=== PATIENT | female | born 1935 | race Caucasian/White ===

== ENCOUNTER 2016-08-03 10:02 | Outpatient (CLI) | payer MEDICARE, BC ==
[~2016-08-03] VITALS: Ht 160 cm; Wt 80.9 kg
[~2016-08-03 10:02] MED LIST: ALENDRONATE SOD35 M1 PO; ASPIRIN E.C. 8181 MG PO; CARDI-OMEGA1000 MG PO; CARDIZEM CD 24240 MG PO; COZAAR 25MG25 MG/TAB PO; DILTIAZEM240 M2 PO; DIOVAN HCT PO; FISH OIL 1000MG1 CAP PO; FOLIC ACID 40400 MCG PO; GLUCOSAMINE & C1 TER PO; IRON324 M1 PO; LIPITOR20 MG PO; METOCLOPRAMIDE10 M1 PO; PROTONIX40 MG PO; PROTONIX40 MG/Pack PO; RT ADVAIR 128 DISKUS IH; VITAMIN C PO; VITAMIN D32000 I1 PO
[2016-08-03] MEDS ORDERED: RECLAST5 MG/100 M IV (10:28)
[2016-08-03] MEDS ORDERED: NORCO 325 MG-51 TAB PO (10:28)
[2016-08-03 10:29] VITALS: BP 118/46; PULSE 50; TEMP 98
== END 2016-08-03 15:51 | disposition home or self-care (01) ==
LOC: EUO 10:02
DX: M81.0 Age-related osteoporosis without current pathological fracture (principal)
CPT/HCPCS: J3489

== ENCOUNTER → 2016-08-05 | Outpatient (CLI) | payer MEDICARE, BC ==
[~2016-08-05] MED LIST changes: +NORCO 325 MG-51 TAB PO; +RECLAST5 MG/100 M IV
== END ==
LOC: MHCPAIN 07:51
DX: G89.29 Other chronic pain (principal); M47.817 Spondylosis without myelopathy or radiculopathy, lumbosacral region; M54.16 Radiculopathy, lumbar region; M53.3 Sacrococcygeal disorders, not elsewhere classified; M25.561 Pain in right knee
CPT/HCPCS: G0463

== ENCOUNTER 2016-09-28 11:15 | Outpatient (RCR) | payer MEDICARE, BC | END 2016-11-09 | LOC: WSPT | DX: M51.16 Intervertebral disc disorders with radiculopathy, lumbar region (principal); M17.11 Unilateral primary osteoarthritis, right knee; Z96.652 Presence of left artificial knee joint | CPT/HCPCS: G8978-GP; G8979-GP ==

== ENCOUNTER → 2016-10-05 | Outpatient (CLI) | payer MEDICARE, BC | LOC: MHCPAIN 08:50 | DX: G89.29 Other chronic pain (principal); M47.817 Spondylosis without myelopathy or radiculopathy, lumbosacral region; M53.3 Sacrococcygeal disorders, not elsewhere classified | CPT/HCPCS: G0463 ==

== ENCOUNTER → 2016-10-13 | Outpatient (CLI) | payer MEDICARE, BC | LOC: MHCPAIN 09:30 | DX: M47.817 Spondylosis without myelopathy or radiculopathy, lumbosacral region (principal) ==

== ENCOUNTER → 2016-10-19 | Outpatient (CLI) | payer MEDICARE, BC | LOC: MHCPAIN 09:09 | DX: G89.29 Other chronic pain (principal); M47.817 Spondylosis without myelopathy or radiculopathy, lumbosacral region; M53.3 Sacrococcygeal disorders, not elsewhere classified; Z87.891 Personal history of nicotine dependence; Z79.82 Long term (current) use of aspirin | CPT/HCPCS: G0463 ==

== ENCOUNTER → 2016-10-27 | Outpatient (CLI) | payer MEDICARE, BC ==
[~2016-10-27] MED LIST changes: +MASON NATURAL2000 IU PO; -VITAMIN D32000 I1 PO
== END ==
LOC: MHCPAIN 09:36
DX: M47.817 Spondylosis without myelopathy or radiculopathy, lumbosacral region (principal)

== ENCOUNTER → 2016-11-02 | Outpatient (CLI) | payer MEDICARE, BC ==
[~2016-11-02] MED LIST changes: -MASON NATURAL2000 IU PO; +VITAMIN D32000 I1 PO
== END ==
LOC: MHCPAIN 14:10
DX: G89.29 Other chronic pain (principal); M47.27 Other spondylosis with radiculopathy, lumbosacral region; M53.3 Sacrococcygeal disorders, not elsewhere classified; Z87.891 Personal history of nicotine dependence; Z79.82 Long term (current) use of aspirin
CPT/HCPCS: G0463

== ENCOUNTER → 2016-11-24 | Outpatient (CLI) | payer MEDICARE, BC | LOC: MHCPAIN 08:19 | DX: M47.27 Other spondylosis with radiculopathy, lumbosacral region (principal); M51.16 Intervertebral disc disorders with radiculopathy, lumbar region | CPT/HCPCS: J1100; Q9967 ==

== ENCOUNTER → 2016-12-07 | Outpatient (CLI) | payer MEDICARE, BC | LOC: MHCPAIN 08:53 | DX: G89.29 Other chronic pain (principal); M47.27 Other spondylosis with radiculopathy, lumbosacral region; M53.3 Sacrococcygeal disorders, not elsewhere classified; Z87.891 Personal history of nicotine dependence | CPT/HCPCS: G0463 ==

== ENCOUNTER → 2017-03-06 | Outpatient (CLI) | payer MEDICARE, BC | LOC: MHCPAIN 09:50 | DX: G89.29 Other chronic pain (principal); M47.27 Other spondylosis with radiculopathy, lumbosacral region; M53.3 Sacrococcygeal disorders, not elsewhere classified; M48.061 Spinal stenosis, lumbar region without neurogenic claudication; Z87.891 Personal history of nicotine dependence | CPT/HCPCS: G0463 ==

== ENCOUNTER 2017-07-11 14:38 | Outpatient (CLI) | payer MEDICARE, BC ==
[~2017-07-11] VITALS: Ht 160 cm; Wt 81.0 kg
[~2017-07-11 14:38] MED LIST changes: +MASON NATURAL2000 IU PO; -VITAMIN D32000 I1 PO
[2017-07-11 15:12] VITALS: BP 110/42; PULSE 50; TEMP 97.9
== END 2017-07-11 16:17 | disposition home or self-care (01) ==
LOC: EUO 14:38
DX: M81.0 Age-related osteoporosis without current pathological fracture (principal)
CPT/HCPCS: J3489

== ENCOUNTER → 2017-12-26 | Outpatient (CLI) | payer MEDICARE ==
[~2017-12-26] VITALS: Ht 160.1 cm; Wt 80.0 kg
[2017-12-26 05:38] VITALS: BP 159/77; PULSE 60
[2017-12-26 06:55] VITALS: BP 165/75; PULSE 52
[2017-12-26 07:00] VITALS: BP 156/77; PULSE 77
[2017-12-26 07:01] VITALS: BP 167/76; PULSE 77
[2017-12-26 07:03] VITALS: BP 163/74; PULSE 76
== END ==
LOC: COL.CARD 05:21
DX: R06.09 Other forms of dyspnea (principal); R07.9 Chest pain, unspecified; I10 Essential (primary) hypertension; E78.5 Hyperlipidemia, unspecified; M81.0 Age-related osteoporosis without current pathological fracture; E55.9 Vitamin D deficiency, unspecified; K21.9 Gastro-esophageal reflux disease without esophagitis; N39.45 Continuous leakage; E66.9 Obesity, unspecified; Z68.31 Body mass index [BMI] 31.0-31.9, adult; G47.00 Insomnia, unspecified; Z88.0 Allergy status to penicillin; Z88.8 Allergy status to other drugs, medicaments and biological substances; Z90.13 Acquired absence of bilateral breasts and nipples; Z96.652 Presence of left artificial knee joint; Z79.82 Long term (current) use of aspirin
CPT/HCPCS: A9502; J2785

== ENCOUNTER 2018-08-23 13:46 | Outpatient (CLI) | payer MEDICARE ==
[2018-08-23 14:21] VITALS: BP 115/94; PULSE 92; TEMP 97.7
== END 2018-08-23 15:09 | disposition home or self-care (01) ==
LOC: EUO 13:46
DX: M81.0 Age-related osteoporosis without current pathological fracture (principal)
CPT/HCPCS: J3489

== ENCOUNTER 2019-11-06 13:40 | Outpatient (CLI) | payer MEDICARE ==
[~2019-11-06] VITALS: Ht 160 cm; Wt 80.9 kg
[2019-11-06 13:53] VITALS: BP 135/62; PULSE 62; TEMP 98
== END 2019-11-06 15:12 | disposition home or self-care (01) ==
LOC: EUO 13:40
DX: M81.0 Age-related osteoporosis without current pathological fracture (principal)
CPT/HCPCS: J3489

== ENCOUNTER → 2020-10-19 | Outpatient (CLI) | payer MEDICARE | LOC: COL.RAD 09:45 | DX: K80.20 Calculus of gallbladder without cholecystitis without obstruction (principal); K21.9 Gastro-esophageal reflux disease without esophagitis ==

== ENCOUNTER 2021-04-10 10:02 | Emergency (ER) | payer MEDICARE ==
[~2021-04-10] VITALS: Ht 160 cm; Wt 77.3 kg
[2021-04-10 10:10] VITALS: TEMP 98.3
[2021-04-10 10:30] LABS: BASO # 0.1 K/mm3 (0.0-0.2); EOS # 0.2 K/mm3 (0.0-0.7); EOS % 2.6 % (0.0-4.0); GRAN # 5.4 K/mm3 (1.4-6.5); GRAN % 64.2 % (42.2-75.2); HEMATOCRIT 45.2 % (37.0-47.0); HEMOGLOBIN 14.7 g/dl (12.5-16.0); LYMPH # 2.1 K/mm3 (1.2-3.4); LYMPH % 25.2 % (20.0-51.0); MEAN CELL VOLUME 96 fl (80.0-100.0); MEAN CORPUSCULAR HEMOGLOBIN 31 pg (27-31); MEAN CORPUSCULAR HGB CONC 33 g/dl (33.0-37.0); MEAN PLATELET VOLUME 11.7 fl (7.4-10.4); MONO # 0.5 K/mm3 (0.1-0.6); MONO % 6.5 % (1.7-9.3); PLATELET COUNT 202 K/mm3 (130-400); RED BLOOD COUNT 4.73 M/mm3 (4.10-5.30); REDCELL DISTRIBUTION WIDTH-CV 12.9 % (11.5-14.5)
[2021-04-10 10:39] LABS: INR 1.1 (0.8-3.0); PROTHROMBIN TIME 12.6 SECONDS (9.7-12.8)
[2021-04-10 10:42] LABS: PARTIAL THROMBOPLASTIN TIME 32.6 SECONDS (26.0-37.0)
[2021-04-10 10:50] LABS: ALANINE AMINOTRANSFERASE 13 U/L (0-55); ALBUMIN 3.9 gm/dL (3.4-4.8); ALKALINE PHOSPHATASE 109 U/L (40-150); ANION GAP 11 mmol/L (7-16); AST,SGOT 16 U/L (5-34); BILIRUBIN,TOTAL 0.9 mg/dL (0.2-1.2); BLOOD UREA NITROGEN 15 mg/dL (10-20); CALCIUM 9.3 mg/dL (8.4-10.2); CARBON DIOXIDE 24 mmol/L (23-31); CHLORIDE 106 mmol/L (98-107); CREATININE, serum 0.94 mg/dL (0.57-1.11); GLUCOSE 108 mg/dL (70-99); POTASSIUM 4.1 mmol/L (3.5-4.5); SODIUM 141 mmol/L (136-145); TOTAL PROTEIN 7.2 gm/dL (6.2-8.1)
[2021-04-10 10:57] LABS: TROPONIN-I < 0.010 ng/mL (0.00-0.033)
[2021-04-10 12:03] VITALS: BP 145/74; PULSE 61
== END 2021-04-10 12:12 | disposition home or self-care (01) ==
LOC: COL.ER 10:02
PROVIDERS: Emergency Medicine
DX: R05.9 Cough, unspecified (principal)
CPT/HCPCS: J7040

== ENCOUNTER 2021-07-13 13:37 | Outpatient (CLI) | payer MEDICARE ==
[~2021-07-13] VITALS: Ht 160 cm; Wt 77.2 kg
[2021-07-13 14:23] VITALS: BP 129/48; PULSE 52; TEMP 97.8
== END 2021-07-13 15:00 | disposition home or self-care (01) ==
LOC: EUO 13:37
DX: M81.0 Age-related osteoporosis without current pathological fracture (principal)
CPT/HCPCS: J3489

== ENCOUNTER 2022-12-21 10:19 | Outpatient (CLI) | payer MEDICARE ==
[~2022-12-21] VITALS: Ht 160 cm; Wt 66.0 kg
[~2022-12-21 10:19] MED LIST changes: +B-121000 MCG PO; +CARAFATE 1GM1 G PO; -COZAAR 25MG25 MG/TAB PO; +COZAAR 50MG50 MG/TAB PO; +COZAAR100 MG PO; +HCTZ 25MG TAB25 MG PO; +MAG-OX 400400 MG/TAB PO; -MASON NATURAL2000 IU PO; +OSCAL 500 TAB500 MG PO; +PROTONIX 40MG T40 MG PO; -PROTONIX40 MG/Pack PO; +TIAZAC180 MG PO; +VITAMIND3 5000 PO; +ZOFRAN ODT4 MG PO
[2022-12-21 10:41] VITALS: BP 124/69; PULSE 50; TEMP 98
== END 2022-12-21 10:55 | disposition home or self-care (01) ==
LOC: EUO 10:19
DX: M81.0 Age-related osteoporosis without current pathological fracture (principal)
CPT/HCPCS: J0897

== ENCOUNTER 2023-12-10 12:52 | Observation (INO) | payer MEDICARE ==
[~2023-12-10] VITALS: Ht 160 cm; Wt 55.2 kg
[~2023-12-10 12:52] MED LIST changes: -COZAAR100 MG PO
[2023-12-10] MEDS ORDERED: B-121000 MCG PO (13:08)
[2023-12-10] MEDS ORDERED: HCTZ12.5TAB PO (13:08)
[2023-12-10] MEDS ORDERED: NS 1,000 ML IV ONE (14:00)
[2023-12-10 14:03] LABS: BASO # 0.1 K/mm3 (0.0-0.2); BASO % 0.6 % (0.0-2.0); EOS % 0.4 % (0.0-4.0); GRAN # 6.3 K/mm3 (1.4-6.5); GRAN % 68.3 % (42.2-75.2); HEMATOCRIT 39.6 % (37.0-47.0); LYMPH # 2.3 K/mm3 (1.2-3.4); LYMPH % 24.9 % (20.0-51.0); MEAN CELL VOLUME 94 fl (80.0-100.0); MEAN CORPUSCULAR HEMOGLOBIN 31 pg (27-31); MEAN CORPUSCULAR HGB CONC 33 g/dl (33.0-37.0); MEAN PLATELET VOLUME 12.9 fl (7.4-10.4); MONO # 0.5 K/mm3 (0.1-0.6); MONO % 5.6 % (1.7-9.3); PLATELET COUNT 190 K/mm3 (130-400); RED BLOOD COUNT 4.21 M/mm3 (4.10-5.30); REDCELL DISTRIBUTION WIDTH-CV 13.2 % (11.5-14.5)
[2023-12-10 14:20] LABS: ALBUMIN 3.4 g/dL (3.4-4.8); BILIRUBIN,TOTAL 0.7 mg/dL (0.2-1.2); CALCIUM 8.6 mg/dL (8.4-10.2); CREATININE, serum 1.84 mg/dL (0.57-1.11); POTASSIUM 3.8 mEq/L (3.5-4.5); TOTAL PROTEIN 6.2 g/dl (6.2-8.1)
[2023-12-10 14:27] LABS: TROPONIN-I 0.021 ng/mL (0.00-0.033)
[2023-12-10] MEDS ORDERED: Magnesium Sulfate 4% 50 ML IV ONE (17:00)
[2023-12-10] MEDS ORDERED: Ondansetron 4 MG/2 ML VIAL IV PRN (17:00)
[2023-12-10] MEDS ORDERED: NS 1,000 ML IV SCH (17:00)
[2023-12-10] MEDS ORDERED: Acetaminophen 500 MG TAB PO PRN (17:00)
[2023-12-10 18:07] VITALS: BP 134/74; PULSE 59; TEMP 97.9
[2023-12-10 18:42] VITALS: BP_SYST 134
--- NOTE | 2023-12-10 18:55 | NUR ---
PATIENT SITTING UP IN BED WITH TV OFF WITH NO FAMILY PRESENT WITH NO ACUTE DISTRESS NOTED. PATIENT ON ROOM AIR. MAGNESIUM AND NS INFUSING INTO RIGHT FOREARM WITH NO COMPLICATIONS NOTED. BEDSIDE SHIFT REPORT COMPLETED WITH LUZ MARINA AT THIS TIME. PATIENT DENIES ANY NEEDS. BED IN LOW POSITION WITH WHEELS LOCKED WITH RAILS UP X3 AND CALL LIIGHT WITHIN REACH.
[2023-12-10 19:49] VITALS: BP 116/69; PULSE 58; TEMP 97.8
[2023-12-10 20:00] VITALS: BP_SYST 116
--- NOTE | 2023-12-10 20:00 | NUR ---
PATIENT RESTING IN BED WITH TV OFF WITH NO FAMILY PRESENT WITH NO ACUTE DISTRESS NOTED. PATIENT ON ROOM AIR. NS INFUSING INTO RIGHT FOREARM WITH NO COMPLICATIONS NOTED. ASSESSMENT AND MEDICATION ADMINISTRATION COMPLETED AT THIS TIME. PATIENT TOELRATED WELL. PATIENT DENIES ANY NEEDS. BED IN LOW POSITION WITH WHEELS LOCKED WITH RAILS UP X3 AND CALL LIGHT WITHIN REACH.
[2023-12-11] VITALS (7 sets, daily range): BP systolic 113–129; BP diastolic 54–63; PULSE 53–62; TEMP 97.7–98.4
[2023-12-11] MEDS ORDERED: Heparin 5,000 UNITS/ML 1 ML VIAL SQ SCH
[2023-12-11 07:01] LABS: BASO # 0.1 K/mm3 (0.0-0.2); BASO % 1.1 % (0.0-2.0); EOS # 0.1 K/mm3 (0.0-0.7); EOS % 1.5 % (0.0-4.0); GRAN # 2.7 K/mm3 (1.4-6.5); GRAN % 58.4 % (42.2-75.2); LYMPH # 1.5 K/mm3 (1.2-3.4); LYMPH % 31.5 % (20.0-51.0); MEAN CORPUSCULAR HGB CONC 32 g/dl (33.0-37.0); MONO # 0.3 K/mm3 (0.1-0.6); MONO % 7.3 % (1.7-9.3); PLATELET COUNT 141 K/mm3 (130-400); RED BLOOD COUNT 3.59 M/mm3 (4.10-5.30)
[2023-12-11 07:18] LABS: HEMATOCRIT 34.1 % (37.0-47.0); MEAN CELL VOLUME 95 fl (80.0-100.0); MEAN CORPUSCULAR HEMOGLOBIN 31 pg (27-31)
[2023-12-11 07:20] LABS: CALCIUM 7.5 mg/dL (8.4-10.2); CREATININE, serum 1.17 mg/dL (0.57-1.11); MAGNESIUM 2.1 mg/dL (1.6-2.6); POTASSIUM 3.6 mEq/L (3.5-4.5)
[2023-12-11] MEDS ORDERED: Influenza Virus Vaccine, Hi-Dose Triv '24-25 (65 YR+) 0.5 ML SYRINGE IM SCH (09:00)
--- NOTE | 2023-12-11 09:00 | NUR ---
PATIENT ALERT AND ORIENTED X3. PATIENT DENIES PAIN AT THIS TIME.ON ROOM AIR. REPORTS NOT BEING ABLE TO TASTE THE FOOD, WHEN ASKED IF THAT HAPPENED RECENTLY PATIENT EXPRESSED THAT IT HAS BEEN A COUPLE OF WEEKS. PATIENT FLUIDS INFUSING PER EMAR. PATIENT HAS BRUISING TO BUTTOCKS FROM THE FALL SHE HAD AT HOME. PATIENT SHIFT ASSESSMENT COMPLETED.PATIENT DENIES FURTHER NEEDS AT THIS TIME. BED AT LOWEST POSITION. BED ALARM INPLACE.
--- NOTE | 2023-12-11 09:26 | NUR ---
hold worker met with pt to discuss discharge planning. She reports to [facility] alone in [facility], but the end of this month she intends to move to [place] with her daughter, Yesenia [phone]. She sees Dr. Benedict for PCP needs and obtains medications from [facility] with no issues. Pt verified Medicare A/B and [employer] insurance. She reports to be independent with ADLS and uses a cane and rolator for DME. She does not have a DPOA-HC, but reports her daughter as NOK. PT pending Discharge Plan: home
[2023-12-11] MEDS ORDERED: MAG-OX 400400 MG/TAB PO (11:59)
--- NOTE | 2023-12-11 13:06 | NUR ---
D: Gluing Machine Offbearer stopped by room on rounds. A: Pt was resting and content. Pt has been a lifelong resident of the area and just sold her home. The plan is to move to [place] to be with her daughter. Pt has no needs right now. P: Gluing Machine Offbearer informed pt that if she needed anything from the brake mechanic area to let her nurse know. Gluing Machine Offbearer will follow up as needed.
--- NOTE | 2023-12-11 14:24 | NUR ---
PATIENT DISCHARGE INSTRUCTIONS GIVEN. PATIENT VERBALIZED UNDERSTANDING. PATIENT INSTRUCTED TO CALL ONCE FLUIDS ARE FINISHED INFUSING TO REMOVE IV FROM RIGHT FORARM. CALL LIGHT WITHIN REACH. BED AT LOWEST POSITION.
--- NOTE | 2023-12-11 15:40 | NUR ---
PATIENT FLUIDS FINISHED. IV REMOVED FROM RIGHT FORARM. PATIENT DRESSED AND ESCORTED OUT OF UNIT BY THIS NURSE. PATIENT WAS WHEELED TO PATIENT CAR.
== END 2023-12-11 15:40 | disposition home or self-care (01) ==
LOC: COL.ER 12:52 → MEDICAL 16:09
PROVIDERS: Physician Assistant; ADMIT Internal Medicine
DX: N17.9 Acute kidney failure, unspecified (principal); E86.0 Dehydration; I10 Essential (primary) hypertension; E78.5 Hyperlipidemia, unspecified; I95.1 Orthostatic hypotension; E43 Unspecified severe protein-calorie malnutrition; Z68.21 Body mass index [BMI] 21.0-21.9, adult; Z79.82 Long term (current) use of aspirin; Z79.899 Other long term (current) drug therapy
CPT/HCPCS: G0008; G0378; J1644; J3475; J7030

== ENCOUNTER → 2023-12-18 | Outpatient (CLI) | payer MEDICARE ==
[~2023-12-18] MED LIST changes: +HCTZ12.5TAB PO
== END ==
LOC: COL.RAD 08:18
DX: G31.9 Degenerative disease of nervous system, unspecified (principal)